=== PATIENT | male | born 1980 | race Two or more races ===

== ENCOUNTER 2024-04-27 08:37 | Inpatient (IN) | payer MEDICAID, OTHER ==
[~2024-04-27] VITALS: Ht 170.2 cm; Wt 64.4 kg
[2024-04-27 09:13] VITALS: PULSE 85; RESP 16; O2SAT 97
--- NOTE | 2024-04-27 09:56 | ED.PDOC ---
History of Present Illness HPI Comments 43-year-old male presents with a chief complaint of tremors, nausea, and vomiting x onset yesterday. Patient states that he has been drinking alcohol heavily including liquor, wine, and beer. Patient reports that his last drink was last night and he had 5 x 24 oz of beer. Patient is now presenting with tremors and nausea, but no active vomiting at this time. Patient reports that he has been drinking heavily for one month. Patient denies any blood in his emesis. No other symptoms or modifying factors present at this time. Chief Complaint: Withdrawal Time Seen by MD: 09:40 Reviewed Notes: Medications, Allergies Allergies: Coded Allergies: NO KNOWN ALLERGIES (Unverified , 04/27/24) Information Source: Patient Mode of Arrival: Ambulatory Severity: Moderate Timing: Days Duration: Since onset Prehospital treatment: None Past Medical History PAST MEDICAL HISTORY: Denies Surgical History: Denies all surgeries Family History Family History: Reviewed,noncontributory to illness Social History Smoker: Non-Smoker Alcohol: Denies ETOH Use Drugs: Denies Drug Use Lives In: Home Constitutional: denies: chills, diaphoresis, fatigue, fever, malaise, sweats, weakness, others EENTM: denies: blurred vision, double vision, ear bleeding, ear discharge, ear drainage, ear pain, ear ringing, eye pain, eye redness, hearing loss, mouth pain, mouth swelling, nasal discharge, nose bleeding, nose congestion, nose pain, photophobia, tearing, throat pain, throat swelling, voice changes, others Respiratory: denies: cough, hemoptysis, orthopnea, SOB at rest, shortness of breath, SOB with excertion, stridor, wheezing, others Cardiovascular: denies: chest pain, dizzy spells, diaphoresis, Dyspnea on exertion, edema, irregular heart beat, left arm pain, lightheadedness, palpitations, PND, syncope, others Gastrointestinal: reports: nausea, vomiting; denies: abdomen distended, abdominal pain, blood streaked bowels, constipated, diarrhea, dysphagia, difficulty swallowing, hematemesis, melena, poor appetite, poor fluid intake, rectal bleeding, rectal pain, others Genitourinary: denies: burning, dysuria, flank pain, frequency, hematuria, incontinence, penile discharge, penile sore, pain, testicle pain, testicle swelling, urgency, others Neurological: reports: tremors; denies: dizziness, fainting, headache, left sided numbness, left sided weakness, numbness, paresthesia, pre-existing deficit, right sided numbness, right sided weakness, seizure, speech problems, tingling, weakness, others Musculoskeletal: denies: back pain, gout, joint pain, joint swelling, muscle pain, muscle stiffness, neck pain, others Integumetry: denies: bruises, change in color, change in hair/nails, dryness, laceration, lesions, lumps, rash, wounds, others Allergic/Immunocompromised: denies: Difficulty Healing, Frequent Infections, Hives, Itching, others Hematologic/Lymphatic: denies: anemia, blood clots, easy bleeding, easy bruising, swollen glands, others Endocrine: denies: excessive hunger, excessive sweating, excessive thirst, excessive urination, flushing, intolerance to cold, intolerance to heat, unexplained weight gain, unexplained weight loss, others Psychiatric: denies: anxiety, bipolar disorder, depression, hopeless, panic disorder, schizophrenia, sleepless, suicidal, others All Other Systems: Reviewed and Negative Physical Exam General Appearance: Normal, Other (Tremulous) HEENT: Normal ENT Inspection, Pharynx Normal, TMs Normal Neck: Full Range of Motion, Non-Tender, Normal, Normal Inspection Respiratory: Chest Non-Tender, Lungs Clear, No Accessory Muscle Use, No Respiratory Distress, Normal Breath Sounds Cardiovascular: No Edema, No JVD, No Murmur, No Gallop, Normal Peripheral Pulses, Tachycardia Breast Exam: Deferred Gastrointestinal: No Organomegaly, Non Tender, No Pulsatile Mass, Normal Bowel Sounds, Soft Genitalia: Deferred Pelvic: Deferred Rectal: Deferred Extremities: No calf tenderness, Normal capillary refill, Normal inspection, Normal range of motion, Non-tender, No pedal edema Musculoskeletal : Apperance: Normal Neurologic: Alert, refrigeration insulator II-XII nml as Tested, No Motor Deficits, Normal Affect, Normal Mood, No Sensory Deficits, Other (TREMULOUS) Cerebellar Function: Normal Reflexes: Normal Skin: Dry, Normal Color, Warm Lymphatic: No Adenopathy Was a procedure done? Was a procedure done?: No EKG EKG : Pulse Rate (adult): 115 [place]: Normal Cardiac Rhythm: ST Block: None Hypertrophy: None ST: Normal Comments SIGNIFICANT ARTIFACT DUE TO TREMORS Differential Dx Considerations may include: Alcohol withdrawal, electrolyte abnormality, dehydration, abdominal disease, pancreatitis, seizures X-Ray, Labs, Meds, VS Vital Signs Date Time Temp Pulse Resp B/P (MAP) Pulse Ox O2 Delivery O2 Flow Rate FiO2 04/27/24 13:32 70 18 132/82 (99) 98 04/27/24 11:41 98.1 72 18 144/88 (106) 97 98.1 04/27/24 10:46 71 04/27/24 09:56 115 04/27/24 09:13 85 16 97 Room Air* 0 21 04/27/24 08:50 135 04/27/24 08:47 97.8 85 16 168/113 (131) 96 Lab Test 04/27/24 11:30 04/27/24 10:19 04/27/24 09:49 04/27/24 08:43 Range/Units Urine Opiates Screen Neg NEGATIVE Urine Fentanyl Screen Neg NEGATIVE Urine Barbiturates Screen Neg NEGATIVE Urine Phencyclidine Screen Neg NEGATIVE Urine Amphetamines Screen Neg NEGATIVE Urine Benzodiazepines Screen Neg NEGATIVE Urine Cocaine Screen Neg NEGATIVE Urine Cannabinoids Screen Neg NEGATIVE White Blood Count 3.6 L 4.4-10.8 10^3/uL Red Blood Count 4.81 4.5-5.90 10^6/uL Hemoglobin 15.8 13.5-17.5 g/dL Hematocrit 46.7 41.0-53.0 % Mean Corpuscular Volume 97.0 80.0-100.0 fL Mean Corpuscular Hemoglobin 32.9 H 28.0-32.0 pg Mean Corpuscular Hemoglobin Concent 33.9 32.0-36.0 g/dL Red Cell Distribution Width 13.3 11.8-14.3 % Platelet Count 152 140-450 10^3/uL Mean Platelet Volume 7.9 6.9-10.8 fL Neutrophils (%) (Auto) 77.5 37.0-80.0 % Lymphocytes (%) (Auto) 10.5 10.0-50.0 % Monocytes (%) (Auto) 11.8 0.0-12.0 % Eosinophils (%) (Auto) 0.0 0.0-7.0 % Basophils (%) (Auto) 0.2 0.0-2.0 % Neutrophils # (Auto) 2.8 1.6-8.6 10 ^3/uL Lymphocytes # (Auto) 0.4 0.4-5.4 10 ^3/uL Monocytes # (Auto) 0.4 0-1.3 10 ^3/uL Eosinophils # (Auto) 0 0-0.8 10 ^3/uL Basophils # (Auto) 0 0-0.2 10 ^3/uL Nucleated Red Blood Cells 0.1 % Sodium Level 135 L 136-145 mmol/L Potassium Level 3.8 3.5-5.1 mmol/L Chloride Level 99 98-107 mmol/L Carbon Dioxide Level 26 20-31 mmol/L Anion Gap 10 5-15 Blood Urea Nitrogen 9 9-23 mg/dL Creatinine 0.74 0.700-1.30 mg/dL Glomerular Filtration Rate Calc 117 >90 mL/min BUN/Creatinine Ratio 12.2 10.0-20.0 Serum Glucose 94 74-106 mg/dL Calcium Level 10.5 H 8.7-10.4 mg/dL Magnesium Level 2.0 1.6-2.6 mg/dL Total Bilirubin 1.6 H 0.2-1.0 mg/dL Aspartate Amino Transferase (AST) 121 H 13-40 U/L Alanine Aminotransferase (ALT) 63 H 7-40 U/L Alkaline Phosphatase 74 46-116 U/L Total Protein 8.3 H 5.7-8.2 g/dL Albumin 5.1 H 3.2-4.8 g/dL Plasma/Serum Blood Alcohol < 3.0 <10 mg/dL POC Glucose 103 117 H 70-106 mg/dl Current Medications Medications (Trade) Dose Ordered Sig/Shannen Route Start Time Stop Time Status Last Admin Thiamine HCl 200 mg ONCE ONCE IV 04/27/24 10:00 04/27/24 10:01 DC 04/27/24 10:22 Magnesium Sulfate/ Dextrose 100 ml @ 100 mls/hr Q1H IV 04/27/24 10:00 04/27/24 11:59 DC 04/27/24 11:15 Sodium Chloride 1,010 ml @ 200 mls/hr Q5H3M ONCE IV 04/27/24 10:00 04/27/24 15:02 DC 04/27/24 10:23 Lorazepam (Ativan Inj) 1 mg STAT ONCE IV 04/27/24 10:00 04/27/24 10:01 DC 04/27/24 10:22 Folic Acid 1 mg/ Dextrose 50.2 ml @ 200.8 mls/ hr ONCE ONCE INJ 04/27/24 10:00 04/27/24 10:14 DC 04/27/24 10:00 Sodium Chloride 1,000 ml @ 1,000 mls/hr Q1H ONCE IV 04/27/24 10:00 04/27/24 10:59 DC 04/27/24 10:24 Ondansetron HCl (Zofran) 4 mg ONCE ONCE IV 04/27/24 10:00 04/27/24 10:01 DC 04/27/24 10:22 Time of 1ST Reevaluation: 10:10 Reevaluation 1ST: Unchanged Patient Education/Counseling: Diagnosis, Treatment, Prognosis Family Education/Counseling: No Family Present Departure 1 Departure Time of Disposition: 11:40 Impression: Primary Impression: Alcohol withdrawal syndrome Qualified Codes: F10.939 - Alcohol use, unspecified with withdrawal, unspecified Additional Impressions: Hypercalcemia Transaminitis Disposition: ADMITTED INPATIENT Condition: Serious Critical Care Note Critical Care Time?: Yes (35 min-critical care time only) Critical care comment: I was immediately asked to see the patient at bedside by nursing staff. Patient was tremulous tachycardic. Concerning for acute alcohol withdrawal concern for acute seizures. Patient was immediately treated by myself and given Ativan IV and stabilized. Time was spent stabilizing the patient ,re-evaluations speaking to patient ,speaking to nursing staff speaking , speaking to physicians. Stability Stability form required: No Heart Score Heart Score: Heart Score Response (Comments) Value History Slightly Suspicious 0 EKG Normal 0 Age <45 0 Risk Factors No known risk factors 0 Troponin Normal limit 0 Total 0 I personally scribed for JERONIMO SETHI MD ([email or web address]) on 04/27/24 at 09:56. Electronically submitted by Jj Butler ([email or web address]). I personally scribed for JERONIMO SETHI MD ([email or web address]) on 04/27/24 at 10:16. Electronically submitted by Jj Butler ([email or web address]). JERONIMO SETHI MD Apr 27, 2024 09:56
[2024-04-27] MEDS: FOLIC ACID 1 MG in D5W 5% 50 ML INJ ONE (10:00)
[2024-04-27] MEDS: THIAMINE 100mg/ml INJ (200mg/2ml VIAL) IV ONE (10:22)
[2024-04-27] MEDS: ONDANSETRON HCL 4 MG/2 ML VIAL IV ONE (10:22)
[2024-04-27] MEDS: LORazepam 2MG/ML-1ML VIAL IV ONE (10:22)
[2024-04-27] MEDS: MVI in SODIUM CHLORIDE 0.9% 1,010 ML IV ONE (10:23)
[2024-04-27] MEDS: SODIUM CHLORIDE 0.9% 1,000 ML IV ONE (10:24)
[2024-04-27 10:41] LABS: Basophils # (auto) 0 10 ^3/uL (0-0.2); Basophils % (auto) 0.2 % (0.0-2.0); Eosinophils # (auto) 0 10 ^3/uL (0-0.8); Hematocrit 46.7 % (41.0-53.0); Hemoglobin 15.8 g/dL (13.5-17.5); Lymphocytes # (auto) 0.4 10 ^3/uL (0.4-5.4); Lymphocytes % (auto) 10.5 % (10.0-50.0); Mean Corpuscular Hemoglobin 32.9 pg (28.0-32.0); Mean Corpuscular Hgb Conc. 33.9 g/dL (32.0-36.0); Monocytes # (auto) 0.4 10 ^3/uL (0-1.3); Monocytes % (auto) 11.8 % (0.0-12.0); Neutrophils # (auto) 2.8 10 ^3/uL (1.6-8.6); Neutrophils % (auto) 77.5 % (37.0-80.0); Nucleated Red Blood Cells % 0.1 %; Platelet Count (auto) 152 10^3/uL (140-450); Red Blood Cells 4.81 10^6/uL (4.5-5.90); Red Cell Distribution Width 13.3 % (11.8-14.3); White Blood Cell 3.6 10^3/uL (4.4-10.8)
--- NOTE | 2024-04-27 10:49 | ECG ---
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
[2024-04-27] MEDS: MAGNESIUM SULFATE 1GM/100ML 100 ML IV SCH (11:09)
[2024-04-27 11:17] LABS: Alkaline Phosphatase 74 U/L (46-116); Anion Gap 10 (5-15); BUN/Creatinine Ratio 12.2 (10.0-20.0); Blood Urea Nitrogen 9 mg/dL (9-23); Carbon Dioxide 26 mmol/L (20-31); Chloride 99 mmol/L (98-107); Glucose 94 mg/dL (74-106); Potassium 3.8 mmol/L (3.5-5.1)
[2024-04-27 11:18] LABS: Alanine Aminotransferase 63 U/L (7-40); Albumin 5.1 g/dL (3.2-4.8); Aspartate Aminotransferase 121 U/L (13-40); Bilirubin, Total 1.6 mg/dL (0.2-1.0); Calcium 10.5 mg/dL (8.7-10.4); Sodium 135 mmol/L (136-145); Total Protein 8.3 g/dL (5.7-8.2)
[2024-04-27 11:33] LABS: Blood Alcohol < 3.0 mg/dL (<10)
[2024-04-27 12:34] LABS: Benzodiazephine Screen, Urine Neg (NEGATIVE); Opiate Scree,Urine Neg (NEGATIVE)
[2024-04-27 12:38] LABS: Amphetamine Screen, Urine Neg (NEGATIVE); Barbiturate Scree,Urine Neg (NEGATIVE); Cannabinoid Screen, Urine Neg (NEGATIVE); Cocaine Screen, Urine Neg (NEGATIVE); Phencyclidine Screen, Urine Neg (NEGATIVE)
--- NOTE | 2024-04-27 13:36 | ECG ---
[facility] Test Date: 2024-04-27 Test Time: 08:50:29 Pat Name: SHEEBA ANGELO Department: ER Room: [address] [place] [address] Gender: M Emergency Specialist: NIKUNJ : 1980 Requested By: JERONIMO SETHI Order Number: [id number] Reading MD: Venancio Manning Measurements Intervals [place] Rate: 135 P: 0 [place]: 0 QRS: 176 QRSD: 90 T: 22 QT: 334 QTc: 501 Interpretive Statements Sinus tachycardia Right axis deviation Abnormal R-wave progression, late transition Artifact in lead(s) I,aVR,aVL,V1,V2,V3,V4,V5,V6 Electronically Signed On 04-27-2024 17:22:40 PST by Venancio Manning Please click the below link to view image of tracing.
[2024-04-27] MEDS: LORazepam 2MG/ML-1ML VIAL IV SCH (14:00)
[2024-04-27] MEDS ORDERED: ONDANSETRON HCL 4 MG/2 ML VIAL IV PRN (14:45)
[2024-04-27] MEDS ORDERED: NITROGLYCERIN 0.4 MG SL TAB SL PRN (14:45)
[2024-04-27] MEDS ORDERED: MORPHINE SULFATE INJ 2 MG/ml SYRG IV PRN (14:45)
[2024-04-27] MEDS ORDERED: LORazepam 0.5 MG TAB PO PRN (14:45)
[2024-04-27] MEDS: SODIUM CHLORIDE 0.9% 1,000 ML IV SCH (14:45)
--- NOTE | 2024-04-27 15:05 | DVHHP2 ---
History of Present Illness Reason for Visit: Nausea, vomiting, and tremors History of Present Illness Agus Chappell is a 43-year-old male with no past medical history who presents to the ED for nausea, vomiting, and tremors x 2 days. Patient states that he has been drinking 6-7 24 oz beers per day for the last 2 months due to family problems. Patient also reports that he is currently living in his truck. Patient reports that he has been vomiting yellow bile like emesis. Patient also reports that he has not eaten in 3 days. Patient denies any chest pain, shortness of breath, abdominal pain, diarrhea, fever, chills, cough, recent sick contacts, lightheadedness, weakness, and headaches. Past Surgical History: None Family History: Cancer, Other (Mom with uterine cancer) Smoke: No ALCOHOL: heavy Drugs: None Lives: Homeless Domestic Violence: Neg Review of Systems Constitutional: No: Fever, Chills, Sweats, Weakness, Malaise, Other Eyes: No: Pain, Vision change, Conjunctivae inflammation, Eyelid inflammation, Other, Redness ENT: No: Ear pain, Ear discharge, Nose pain, Nose discharge, Nose congestion, Mouth pain, Mouth swelling, Throat pain, Throat swelling, Other Respiratory: No: Cough, Dry, Shortness of breath, SOB with excertion, Wheezing, Hemoptysis, Pleuritic Pain, Sputum, Wheezing, Other Cardiovascular: No: Chest Pain, Palpitations, Orthopnea, Paroxysmal Noc. Dyspnea, Edema, Lt Headedness, Other Gastrointestinal: Nausea, Vomiting; No: Abdominal Pain, Diarrhea, Constipation, Melena, Hematochezia, Other Genitourinary: No Dysuria, No Frequency, No Incontinence, No Hematuria, No Retention, No Other Musculoskeletal: No: other, neck pain, shoulder pain, arm pain, back pain, hand pain, leg pain, foot pain Skin: No: Rash, Lesions, Jaundice, Bruising, Other Neurological: Other (Tremors); No: Weakness, Numbness, Incoordination, Change in speech, Confusion, Seizures Allergies: Coded Allergies: NO KNOWN ALLERGIES (Unverified , 04/27/24) Medications Current Medications Medications Dose Ordered Sig/Shannen Route Start Time Stop Time Status Last Admin Dose Admin Lorazepam 1 mg Q4H IV 04/27/24 14:00 Exam Vital Signs Vital Signs Date Time Temp Pulse Resp B/P (MAP) Pulse Ox O2 Delivery O2 Flow Rate FiO2 04/27/24 13:32 70 18 132/82 (99) 98 04/27/24 11:41 98.1 98.1 04/27/24 09:13 Room Air* 0 21 General Appearance: Alert, Oriented X3, Cooperative, mild distress HEENT: Atraumatic, PERRLA, EOMI, Mucous membr. moist/pink Respiratory: Clear to auscultation, Normal air movement Cardiovascular: Normal S1, Normal S2, No murmurs Abdominal: Soft, No hepatospenomegaly, No masses Extremities: No clubbing, No cyanosis, No edema, Normal pulses, No tende rness/swelling Skin: No rashes, No breakdown, No significant lesion Neuro: Normal speech, Sensation intact Psych/Mental Status: Mental status NL Labs/Xrays Labs Test 04/27/24 11:30 04/27/24 10:19 04/27/24 09:49 Range/Units Urine Opiates Screen Neg NEGATIVE Urine Fentanyl Screen Neg NEGATIVE Urine Barbiturates Screen Neg NEGATIVE Urine Phencyclidine Screen Neg NEGATIVE Urine Amphetamines Screen Neg NEGATIVE Urine Benzodiazepines Screen Neg NEGATIVE Urine Cocaine Screen Neg NEGATIVE Urine Cannabinoids Screen Neg NEGATIVE White Blood Count 3.6 L 4.4-10.8 10^3/uL Red Blood Count 4.81 4.5-5.90 10^6/uL Hemoglobin 15.8 13.5-17.5 g/dL Hematocrit 46.7 41.0-53.0 % Mean Corpuscular Volume 97.0 80.0-100.0 fL Mean Corpuscular Hemoglobin 32.9 H 28.0-32.0 pg Mean Corpuscular Hemoglobin Concent 33.9 32.0-36.0 g/dL Red Cell Distribution Width 13.3 11.8-14.3 % Platelet Count 152 140-450 10^3/uL Mean Platelet Volume 7.9 6.9-10.8 fL Neutrophils (%) (Auto) 77.5 37.0-80.0 % Lymphocytes (%) (Auto) 10.5 10.0-50.0 % Monocytes (%) (Auto) 11.8 0.0-12.0 % Eosinophils (%) (Auto) 0.0 0.0-7.0 % Basophils (%) (Auto) 0.2 0.0-2.0 % Neutrophils # (Auto) 2.8 1.6-8.6 10 ^3/uL Lymphocytes # (Auto) 0.4 0.4-5.4 10 ^3/uL Monocytes # (Auto) 0.4 0-1.3 10 ^3/uL Eosinophils # (Auto) 0 0-0.8 10 ^3/uL Basophils # (Auto) 0 0-0.2 10 ^3/uL Nucleated Red Blood Cells 0.1 % Sodium Level 135 L 136-145 mmol/L Potassium Level 3.8 3.5-5.1 mmol/L Chloride Level 99 98-107 mmol/L Carbon Dioxide Level 26 20-31 mmol/L Anion Gap 10 5-15 Blood Urea Nitrogen 9 9-23 mg/dL Creatinine 0.74 0.700-1.30 mg/dL Glomerular Filtration Rate Calc 117 >90 mL/min BUN/Creatinine Ratio 12.2 10.0-20.0 Serum Glucose 94 74-106 mg/dL Calcium Level 10.5 H 8.7-10.4 mg/dL Magnesium Level 2.0 1.6-2.6 mg/dL Total Bilirubin 1.6 H 0.2-1.0 mg/dL Aspartate Amino Transferase (AST) 121 H 13-40 U/L Alanine Aminotransferase (ALT) 63 H 7-40 U/L Alkaline Phosphatase 74 46-116 U/L Total Protein 8.3 H 5.7-8.2 g/dL Albumin 5.1 H 3.2-4.8 g/dL Plasma/Serum Blood Alcohol < 3.0 <10 mg/dL POC Glucose 103 70-106 mg/dl Assessment/Plan Assessment/Plan Assessment/Plan: ETOH withdrawal Transaminitis Labs Elevated T bili Lipase Amylase Ammonia levels Ativan given ED UA Antiemetics NS bolus 2 L given ED Folic acid Mag level Thiamine EKG Drug screen Blood alcohol screen Multivitamins [facility] Lipase Amylase Ammonia levels hepatitis panel Phos Vitamin B1 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 Current [place] score 13 points ETOH abuse [facility] protocol Counseled patient on alcohol cessation FEN/PPX IVf Diet PUD ppx - not indicated no history of GERD or GI bleed DVT ppx - not indicated patient ambulating Admit to tele for monitoring No home meds to reconcile Discussed plan of care with patient and nurse Plan discussed with: Patient My Orders Orders - CECY UP Procedure Category Date Status Time Urinalysis LAB 04/27/24 Verified 14:43 Thiamine 100mg Po [facility] 04/28/24 Verified Daily 10:00 Folic Acid 1mg Po [facility] 04/28/24 Verified Daily 10:00 Mvi Tablet Po Daily [facility] 04/28/24 Verified 10:00 Ativan 2mg Po Q4h Atc [facility] 04/27/24 Verified 14:45 Ativan 2mg Po Q2hr Prn [facility] 04/27/24 Verified 14:45 Admit ADMIT 04/27/24 Verified 14:43 Allergies [facility] 04/27/24 Verified 14:43 Code Status CODE 04/27/24 Verified 14:43 0.9% Ns 1000 Ml [facility] 04/27/24 Verified 14:45 Ondansetron Hcl [facility] 04/27/24 Verified (Zofran) 14:45 Complete Blood Count LAB 04/28/24 Verified 04:00 Comprehensive LAB 04/28/24 Verified Metabolic Panel 04:00 Cardiac DIET 04/27/24 Verified Diet-2gna,Lofat,Lochol Dinner Acetaminophen Tablet [facility] 04/27/24 Verified (Tylenol Tablet) 14:45 Nitroglycerin [facility] 04/27/24 Verified Sublingual (Ntrostat 14:45 Morphine Sulfate [facility] 04/27/24 Verified Injection 14:45 Stat Ekg For Chest [facility] 04/27/24 Verified Pain 14:43 Notify Md Of Changes [facility] 04/27/24 Verified From Base 14:43 Data Analyst Report Writer For [facility] 04/27/24 Verified 24 Hours 14:43 Emergency Dysrhythmia [facility] 04/27/24 Verified Protocol 14:43 Rhythm Strips Once [facility] 04/27/24 Verified Every Shift 14:43 Oxygen By Nasal RT 04/27/24 Verified Cannula 14:43 Date of Service: Apr 27, 2024 Billing Provider: CECY UP Common Visit Codes: [id number] INP/OBS CARE (HIGH) CECY UP Apr 27, 2024 15:05
[2024-04-27] MEDS: LORazepam 0.5 MG TAB PO SCH (15:32)
[2024-04-27 15:35] LABS: Phosphorus 2.6 mg/dL (2.4-5.1)
[2024-04-27] MEDS: ACETAMINOPHEN 325 MG TAB PO PRN (18:11)
[2024-04-27 19:30] VITALS: O2SAT 98
[2024-04-28 03:30] VITALS: BP 136/87; PULSE 76; RESP 19; TEMP 98.4; O2SAT 98
[2024-04-28] MEDS ORDERED: THIAMINE HCL 100 MG TAB PO SCH (10:00)
[2024-04-28] MEDS ORDERED: MULTIPLE VITAMIN TAB PO SCH (10:00)
[2024-04-28] MEDS ORDERED: FOLIC ACID 1 MG TAB PO SCH (10:00)
[2024-04-30 09:01] LABS: Hepatitis B Surface Antigen Negative (Negative)
[2024-04-30 09:17] LABS: Hepatitis A Ab IgM Negative; Hepatitis B Core IgM Negative (Negative)
[2024-04-30 09:18] LABS: Hepatitis C Antibody Negative (Negative)
== END 2024-04-28 04:38 | disposition left against medical advice (07) | DRG 770 ==
LOC: ER 08:37 → TELE 14:43
DX: F10.139 Alcohol abuse with withdrawal, unspecified (principal); E83.52 Hypercalcemia; R74.01 Elevation of levels of liver transaminase levels; Z53.29 Procedure and treatment not carried out because of patient's decision for other reasons; Y90.9 Presence of alcohol in blood, level not specified; Z59.02 Unsheltered homelessness
CPT/HCPCS: 36415; 80053; 80074; 80307; 80320; 82140; 82150; 82962; 83690; 83735; 84100; 84425; 85025; 93005; 99291; G0378; J2405; J7060